=== PATIENT | male | born 1975 | race Caucasian/White ===

== ENCOUNTER 2024-08-02 10:23 | Emergency (ER) | payer OTHER, SELFPAY ==
[2024-08-02 10:24] VITALS: BP 173/104; PULSE 106; RESP 15; TEMP 36.4; O2SAT 98; BMI 45.3
[2024-08-02 10:26] VITALS: BP 173/104; PULSE 104; RESP 16; TEMP 36.4; O2SAT 97
--- NOTE | 2024-08-02 10:40 | US_ITS ---
STUDY: SCROTUM ULTRASOUND REASON FOR EXAM: Male, 48 years old. left test pain/swelling TECHNIQUE: Ultrasound evaluation of the scrotum was performed with color Doppler and static flores-scale imaging. COMPARISON: None. FINDINGS: RIGHT TESTICLE INTRATESTICULAR: There is a normal size of the right testicle. The right testicle measures 4.1 x 2.7 x 2.1 cm. There is a homogenous echotexture. There is normal arterial and normal venous vascularity. There is no demonstrated right testicular mass or cyst. EXTRATESTICULAR: The epididymis is normal in size. The epididymis head measures 0.8 cm. There is increased (hyperemic) vascularity of the epididymis. There is no demonstrated epididymal cystic structure. There is a small hydrocele. There is no demonstrated varicocele. There is no demonstrated extratesticular mass or cyst. LEFT TESTICLE INTRATESTICULAR: There is a normal size of the left testicle. The left testicle measures 3.9 x 2.7 x 2.1 cm. There is a homogenous echotexture. There is normal arterial and normal venous vascularity. There is a 7 mm cyst lateral to the testicle EXTRATESTICULAR: The epididymis is normal in size. The epididymis head measures 1.0 cm. There is increased (hyperemic) vascularity of the epididymis. There is a well-defined cystic structure within the epididymis, without internal echoes, consistent with an epididymal cyst. There is a moderate size hydrocele with debris. There is no demonstrated varicocele. There is no demonstrated extratesticular mass or cyst. US/Testicular with Arterial Flow IMPRESSION: No sonographic evidence of intratesticular mass or torsion Increased vascularity to both epididymides suggesting epididymitis. Small right-sided hydrocele, moderate debris-containing left hydrocele Left epididymal cyst Electronically Signed: Ron Davis MD at 14:16 EST Reading Location ID and State: [facility] / [place] , Service support ,
--- NOTE | 2024-08-02 10:41 | EX.ED.GUMALE ---
HPI History of Present Illness Chief Complaint: Male Pain/Injury Informant: patient Related History Sexually: Active and Single Partner Narrative Narrative: 48-year-old male presenting with gradual onset left testicular pain yesterday, little worse today, and noticed in the shower this morning that it is larger than normal. He states this started yesterday when he was at work. 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 He states incidentally he is currently being treated for diverticulitis, he is on his second week of antibiotics because after Augmentin for the first week he was not getting better. He has been on antibiotics for 6 days now cefdinir and Flagyl and he states it is improving but he still has nausea but he thinks this is from the antibiotics, and some left lower quadrant discomfort. He states he had testicular torsion in the past, it was on the left, he did not have surgery, he states someone gave him a pill that fixed it. He denies any urinary symptoms currently, new fevers, vomiting, and he does not have any risk for an STD or a history of GC or chlamydia. [facility] Medical History (Updated 08/02/24 @ 15:[address] Gio Saul MD) HTN (hypertension) Diverticulosis Home Medications ?Medication ?Instructions ?Recorded ?Last Taken ?Type ciprofloxacin HCl 500 mg tablet 500 mg PO BID #20 TABLETS 08/02/24 Unknown Rx Allergy/AdvReac Type Severity Reaction Status Date / Time No Known Allergies Allergy Verified 08/02/24 10:24 Social History Smoking Status: Unknown if ever smoked [facility] ED Constitutional Constitutional ED: Denies chills or fever(s) Eyes Eyes: Denies change in vision or diplopia ENT ENT ED: Denies rhinorrhea or sore throat Cardiovascular Cardiovascular: Denies chest pain or palpitations Respiratory/Chest Respiratory/Chest: Denies cough or dyspnea Gastrointestinal Gastrointestinal: Reports abdominal pain and nausea; Denies diarrhea or vomiting Genitourinary Genitourinary ED: Reports scrotal pain; Denies dysuria or hematuria Musculoskeletal Musculoskeletal: Denies back pain or neck pain Integumentary Denies abscess or rash Neurologic Neurologic: Denies headache(s), paresthesias or weakness Psychiatric Psychiatric: Denies anxiety or suicidal thoughts EXAM Physical Exam Const Vital Signs: 08/02/24 10:24 08/02/24 10:26 08/02/24 12:24 Temperature 97.5 F L 97.5 F L Temperature Source Temporal Temporal Pulse Rate 106 H 104 H 87 Respiratory Rate 15 16 16 Blood Pressure 173/104 H 173/104 H 133/72 H Blood Pressure Mean 127 127 92 Pulse Ox 98 97 99 Oxygen Delivery Method Room Air Room Air 08/02/24 14:00 Temperature Temperature Source Pulse Rate 78 Respiratory Rate 16 Blood Pressure 168/89 H Blood Pressure Mean 115 Pulse Ox 99 Oxygen Delivery Method Positive well nourished, well developed and obese General Appearance ED: well developed and NAD Nutritional Appearance: obese HEENT Reports moist mucous membranes normocephalic and atraumatic Eyes PERRL and EOMs intact bilaterally Neck full ROM and supple Resp normal respiratory effort and clear to auscultation bilaterally Cardio regular rate, regular rhythm and no murmurs GI non-tender and non-distended Auscultation: normoactive bowel sounds Palpation: soft no CVA tenderness Narrative: Scrotum examined while standing. Left testicle is tender but more so in the epididymis, and more so above this in the area of the spermatic cord but I do not palpate a hernia. The left testicle is larger than the right, but not majorly so. The scrotum is normal. The lie of both testicles is normal. The right testicle and epididymis is nontender. No other masses palpated. Back/Spine no CVA tenderness General Back: other FROM Extremity normal to inspection General Extremety ED: Negative for edema, pulses abnormal or tenderness General Extremity: Negative for edema or pulses abnormal Neuro oriented x3, CN's II-XII intact bilaterally and no sensory deficits noted Sensorium / Orientation: awake and alert Motor Exam: strength 5/5 throughout Skin no rashes or lesions noted and no wounds MDM MDM MDM Narrative Medical decision making narrative: Ultrasound indicated in order to evaluate for torsion, he is examining more like epididymitis however he has been on antibiotics for most 2 weeks now making that less likely. Ultrasound obtained I reviewed the images and the report which I agree with, it is consistent with possible epididymitis bilaterally as well as moderate debris containing left hydrocele. Clinically I was more concerned about epididymitis, so I think that is probably the issue here. There is no evidence of orchitis or torsion. Since patient is on 2 different antibiotics, I suppose the most likely situation is that it could be an E. coli infection that is not covered by Flagyl or cefdinir. He is almost finished with antibiotics for diverticulitis he has maybe 3 days left, so I am going to replace his cefdinir with ciprofloxacin and if the symptoms do not resolve, he it will be referred to urology for follow-up. Of note, this patient does not have risk for GC/chlamydia. Radiography Diagnostic Testing: Clinical Impression(s) from Imaging Studies Testicular Ultrasound 08/02/24 10:40 IMPRESSION: No sonographic evidence of intratesticular mass or torsion Increased vascularity to both epididymides suggesting epididymitis. Small right-sided hydrocele, moderate debris-containing left hydrocele Left epididymal cyst Electronically Signed: Ron Davis MD at 14:16 EST , Discharge Plan Triage Chief Complaint: Male Pain/Injury ED Provider: Gio Saul Dx/Rx/DC Orders Clinical Impression: Acute epididymitis, Hydrocele in adult Instructions: ED Epididymitis, ED Hydrocele, Type Not Specified Prescriptions: New ciprofloxacin HCl 500 mg tablet 500 mg PO BID Qty: 20 0RF Primary Care Provider: Care Physician,No Primary Referrals: Thien Haney MD [Med Staff - Active Staff] - 1 Week if not improving Activity Restrictions/Additional Instructions: Stop cefdinir. Continue metronidazole as prescribed until completed. Ibuprofen or Aleve okay for pain. If the testicle does not go away within a week, call and follow-up with urology. There were small hydroceles in both sides of your scrotum, they usually are no big deal and do not cause pain. Print Language: [place] Disposition Disposition: Home, Self Care
[2024-08-02 12:24] VITALS: BP 133/72; PULSE 87; RESP 16; O2SAT 99
[2024-08-02 14:00] VITALS: BP 168/89; PULSE 78; RESP 16; O2SAT 99
[2024-08-02] MEDS: Ciprofloxacin 500 MG Tablet PO (15:19)
[2024-08-02] MEDS: Naproxen 500 MG Tablet PO (15:19)
== END 2024-08-02 15:23 | disposition home or self-care (01) ==
PROVIDERS: Emergency Provider Emergency Medicine; Visit Provider Emergency Medicine
DX: N45.1 Epididymitis (principal); N43.3 Hydrocele, unspecified; K57.92 Diverticulitis of intestine, part unspecified, without perforation or abscess without bleeding; E66.9 Obesity, unspecified
CPT/HCPCS: 76870; 93976; 99283

== ENCOUNTER → 2024-08-25 | Outpatient (CLI) | payer OTHER, SELFPAY ==
[2024-08-25 12:11] LABS: Absolute Lymphocyte Count 1.29 X10^3/uL (0.83-4.51); Absolute Neutrophil Count 2.9 X10^3/uL (2.0-7.7); Basophil# 0.05 X10^3/uL; Basophil% 1.1 % (0-1); Eosinophil# 0.12 X10^3/uL; Eosinophils% 2.5 % (0-5); Hematocrit 44.5 % (40-54); Hemoglobin 14.7 g/dL (13.0-16.5); Lymphocyte # 1.29 X10^3/ul (0.83-4.51); Lymphocyte % 27.3 % (19-41); Mean Corpuscular Hgb 31.5 pg (27.0-32.0); Mean Corpuscular Volume 95.5 fL (80-94); Mean Platelet Vol. 9.4 fl (6.2-12.0); Monocyte# 0.39 X10^3/uL; Monocyte% 8.2 % (0-10); NRBC Flagged by Analyzer 0 % (0-5); Neutrophil # 2.86 X10^3/uL (2.7-7.7); Neutrophil % 60.5 % (47-70); Platelet Count 194 K/mm3 (150-450); RBC Distribution Width CV 14.2 % (11.6-14.6); RBC Distribution Width SD 49.6 fl (35.1-43.9); Red Blood Count 4.66 M/mm3 (4.6-6.2); White Blood Count 4.7 K/mm3 (4.4-11.0)
[2024-08-25 12:36] LABS: ALB/GLOB Ratio 1.1 RATIO (0.9-2.4); AST(SGOT) 30 U/L (15-37); Alanine Aminotransfer ALT/SGPT 48 U/L (16-61); Albumin, Serum 3.8 g/dL (3.2-5.0); Alkaline Phosphatase 47 U/L (45-117); Anion Gap 6 (5-15); BUN 17 mg/dL (7-18); BUN/Creat Ratio 15.3 RATIO (10-20); Calcium,Total 8.8 mg/dL (8.5-10.1); Chloride 111 mmol/L (98-107); Cholesterol 115 mg/dL (200); Creatinine, Serum 1.11 mg/dL (0.70-1.30); EST Glomerular Filtration Rate 76 mL/min (>60); Est Glom Filt Rate - Afr Amer 91 mL/min (>60); Globulin 3.5 g/dL (2.2-4.2); Glucose 99 mg/dL (74-106); High Density Lipoprotein 48 mg/dL; PSA,Total - Annual Screen 0.27 ng/mL (0.00-4.00); Potassium 3.9 mmol/L (3.5-5.1); Protein, Total 7.3 g/dL (6.4-8.2); Sodium Level 140 mmol/L (136-145); Triglycerides 68 mg/dL; Very Low Density Lipoprotein 14 mg/dL (5-40)
== END | disposition home or self-care (01) ==
PROVIDERS: PCP Nurse Practitioner Family; Visit Provider Nurse Practitioner Family
DX: Z00.01 Encounter for general adult medical examination with abnormal findings (principal); Z12.5 Encounter for screening for malignant neoplasm of prostate
CPT/HCPCS: 36415; 80053; 80061; 84153; 85025; G0103